=== PATIENT | male | born 1945 | race Caucasian/White ===

== ENCOUNTER 2019-09-07 09:31 | Emergency (ER) | payer MEDICARE, SELFPAY ==
--- NOTE | ~2019-09-07 | XR_ITS ---
EXAMINATION: XR ribs RT 2V EXAM DATE: 09/07/2019 10:14 INDICATION: Initial encounter following injury, with pain of the right ribs. Injury a few days ago. TECHNIQUE: Frontal projection of the upper right ribs, frontal projection of the lower right ribs, ob lique projection of the right ribs, without chest x-ray(s) for interpretation. There is no prior bart dy for comparison. FINDINGS: There are acute right 8th -10th rib fractures, mild displacement of the eighth fracture. Th ere is no soft tissue abnormality seen. Right hilar, subcarinal granulomas. IMPRESSION: Acute right 8th-10th rib fractures laterally. Reviewed, dictated and finalized at location A.
[2019-09-07 09:45] VITALS: BP 117/61; PULSE 79; RESP 20; TEMP 36.9; O2SAT 98
--- NOTE | 2019-09-07 10:02 | ED.FALL ---
HPI - Fall General Chief Complaint: Wound/Laceration Stated Complaint: rib pain Time Seen by Provider: 09/07/19 09:55 Source: patient Mode of arrival: ambulatory Limitations: no limitations History of Present Illness HPI Narrative: Juma Dunbar is a 73 yo male with a PMH of HTN who comes to the [facility] with right rib pain after fall playing golf a few days ago. Fell onto his arm did not hit post or other obstacle Related Data Home Medications Medication Instructions Recorded Confirmed Fish Oil 1,000 mg PO BID 09/07/19 09/07/19 amlodipine 5 mg PO BID 09/07/19 09/07/19 aspirin 81 mg PO DAILY 09/07/19 09/07/19 metoprolol tartrate 100 mg PO Q12H 09/07/19 09/07/19 vowzibqcuyyi-pup-ikiy-FA-vit K 1 tablet PO DAILY 09/07/19 09/07/19 [Adults Multivitamin] ramipril 10 mg PO DAILY 09/07/19 09/07/19 rosuvastatin 5 mg PO DAILY 09/07/19 09/07/19 vitamin B complex [B 1 tablet PO DAILY 09/07/19 09/07/19 Complex-Vitamin B12] Allergies Allergy/AdvReac Type Severity Reaction Status Date / Time No Known Allergies Allergy Verified 09/07/19 09:55 Review of Systems Review of Systems: Narrative: CONSTITUTIONAL: Denies fever, chills, sweats. EYES: Denies visual changes, redness, discharge. ENT: Denies rhinorrhea, congestion, sore throat, otalgia. CARDIOVASCULAR: Denies chest pain, palpitations, edema. Chest wall tenderness on right RESPIRATORY: Denies dyspnea, wheezing, cough GASTROINTESTINAL: Denies abdominal pain, nausea, vomiting, diarrhea. GENITOURINARY: Denies dysuria, hematuria, abnormal discharge SKIN: Denies rash or itching. NEUROLOGIC: Denies numbness, or focal weakness. PSYCHIATRIC: Denies anxiety or depression. [facility] Family History Family History Other Heart disease Social History Social History Smoking status: Former smoker Alcohol intake: current Comments At time of signature, I agree with nursing past medical, surgical, social and family history. There is no relevant family history pertinent to the presenting complaint. Exam Narrative: Exam Narrative: GENERAL: This is a well-nourished, well-developed patient, in mild distress. HEAD: normocephalic, atraumatic. EYES: Sclera clear/white. Vision is grossly intact. EARS: External ears normal. Hearing grossly intact. NOSE: External nose normal without nasal discharge, nares without redness, no rhinorrhea. THROAT: Mucous membranes moist, posterior pharynx NECK: Neck supple, CARDIOVASCULAR: Regular rate and rhythm without murmurs, gallops, or rubs. RESPIRATORY: Clear to auscultation. Breath sounds equal bilaterally. No wheezes, rales, or rhonchi. GASTROINTESTINAL: Abdomen soft, non-tender, SKIN: warm, intact with no suspicious lesions or rash, good texture and turgor. Abrasions to both right knee and right elbow NEURO: awake, alert, and oriented to person, place and time. There were no obvious focal neurologic abnormalities. Steady gait EXTREMITIES: Normal range of motion. BACK: Nontender without deformity Course Course Emergency Course: X-ray right ribs-rib fractures 8 through 10-no soft tissue injury identified Started on baclofen with Tylenol due to high blood pressure; patient reminded to take deep breaths and to see primary care physician upon return to [place] Vital Signs Vital signs: Vital Signs Temperature 98.5 F 09/07/19 09:45 Pulse Rate 79 09/07/19 09:45 Respiratory Rate 20 09/07/19 09:45 Blood Pressure 117/61 09/07/19 09:45 Pulse Oximetry 98 09/07/19 09:45 Temperature 98.5 F 09/07/19 09:45 Pulse Rate 79 09/07/19 09:45 Respiratory Rate 20 09/07/19 09:45 Blood Pressure 117/61 09/07/19 09:45 Pulse Oximetry 98 09/07/19 09:45 MDM - Fall Differential Diagnosis Differential diagnosis: Likely compression fracture and other (Rib contusion versus rib fracture) Discharge Plan [facility]
== END 2019-09-07 10:30 | disposition home or self-care (01) ==
PROVIDERS: Emergency Provider Nurse Practitioner
DX: S22.41XA Multiple fractures of ribs, right side, initial encounter for closed fracture (principal); S20.211A Contusion of right front wall of thorax, initial encounter; I10 Essential (primary) hypertension; Z87.891 Personal history of nicotine dependence; Z79.82 Long term (current) use of aspirin; W10.1XXA Fall (on)(from) sidewalk curb, initial encounter; W18.39XA Other fall on same level, initial encounter; Y93.53 Activity, golf
CPT/HCPCS: 71100; 99213; G0463